=== PATIENT | female | born 1965 | race African-American/Black ===

== ENCOUNTER 2016-07-11 19:54 | Emergency (ER) ==
[2016-07-11 20:03] VITALS: BP 123/62
[2016-07-11] MEDS ORDERED: DOXYCYCLINE PO ONE (20:26)
--- NOTE | 2016-07-11 20:30 | PROVIDER DOCUMENTATION ---
HPI-Female /OB/Breast - General Chief Complaint: Female Stated Complaint: ANXIETY Time Seen by Provider: 07/11/16 20:20 Source: reports: patient Allergies/Adverse Reactions: Patient Allergies Allergy/AdvReac Type Severity Reaction Status Date / Time penicillin G Allergy Unknown Verified 07/11/16 20:13 Sulfa (Sulfonamide Allergy Unknown Verified 07/11/16 20:13 Antibiotics) sulfamethoxazole Allergy SWELLING Verified 07/11/16 20:13 [From Bactrim] trimethoprim [From Bactrim] Allergy SWELLING Verified 07/11/16 20:13 Home Medications: Hydrocodone/Acetaminophen [Lortab 7.5-325 mg Tablet] 7.5 mg PO BID 08/15/14 Aspirin [Aspirin EC] 81 mg PO DAILY 06/11/15 - History of Present Illness-Female /OB Nature of Presenting Problem: 51 y/o f presents to the ed with exposure to chlamydia. pt reports her partner informed her today after having sexual relations that he has chlamydia, so she wanted to get check. pt denies any burning upon urination/itching. Quality of Pain: reports: none Severity in ED: reports: mild Onset/Duration: reports: this evening Timing: reports: still present Vaginal Bleeding Amount: None Urinary Symptoms: reports: no symptoms Contraception: reports: none Similar Symptoms Previously?: No Recently seen or treated by another doctor?: No Review of Systems - Adult - REVIEW OF SYSTEMS - ADULT Constitutional: denies: chills, fever Respiratory: denies: shortness of breath, wheezing Genitourinary: denies: dysuria, discharge Past History - Adult - PAST MEDICAL HISTORY-ADULT Review of Records: reports: Old Records Reviewed, Nursing Assessment Review, Medications Reviewed Major Childhood Illnesses: reports: denies history Cardiovascular: reports: denies history Respiratory: reports: denies history Gastrointestinal: reports: GERD Obstetrical/Gynecological: reports: denies history Genitourinary: reports: denies history Musculoskeletal: reports: fibromyalgia Neurological: reports: other (Chiare malformation) Psychiatric: reports: anxiety, psychiatric problems Endocrine/Immune: reports: thyroid disorder Other Conditions: reports: denies history Additional History: Chiari 1 malformation - IMMUNIZATION STATUS Childhood Immunizations: See Nurse Assessment Flu Vaccine: See Nurse Assessment - FAMILY HISTORY Family History: reviewed, not pertinent - SOCIAL HISTORY Smoking: non-smoker Physical Exam-General - PHYSICAL EXAM-ADULT Initial Vital Signs Reviewed: Yes - CONSTITUTIONAL General Appearance: alert, no apparent distress - EYES Eyes: PERRL/EOMI, pink conjunctivae, fundi clear, no AV nicking - HEAD, EARS, NOSE, MOUTH & THROAT HENMT: normocephalic/atraumatic, moist mucous membranes, normal ENT inspection - RESPIRATORY Respiratory: chest non-tender, lungs clear, normal breath sounds - CARDIOVASCULAR Cardiovascular: normal peripheral pulses, regular rate, rhythm - GASTROINTESTINAL (ABDOMEN) Abdominal Exam: normal bowel sounds, non tender, soft - LYMPHATIC Lymphatic: no adenopathy - SKIN Integumentary: normal color, normal turgor, warm/dry - PSYCHIATRIC Psych/Mental Status: normal mood/affect, normal thought content, normal thought process, oriented x 3 Progress - PLAN OF CARE/RESULTS Progress/Plan/Lab Results: plan of care: medication Orders Category Date Time Status CHLAMYDIA AND GC BY PCR URINE [NUREMBERG] Stat Lab 07/11/16 20:28 Uncollected Doxycycline Med 07/11/16 20:26 Discontinued 100 mg PO NOW ONE Vital Signs - 24 hr 07/11/16 20:03 Temperature 97.9 F Pulse Rate 95 H Respiratory 18 Rate Blood Pressure 123/62 O2 Sat by Pulse 100 Oximetry Departure - Departure Time of Disposition Order: 20:28 DIAGNOSIS: Chlamydia contact Disposition: HOME 01 Certified Medical Emergency: Emergent Condition: Stable Additional Instructions: ED Follow Up Instructions: You have been treated by a care provider in the Emergency Department. These instructions are being provided to you so you can have an understanding of how to care for yourself upon discharge. Upon discharge from the Emergency Department, you are responsible for making arrangements for follow-up care by a physician of your choice. Take all prescribed medications as directed. Return to the Emergency Department immediately for any new or worsening symptoms. You may call the Physician Referral phone number at [phone] to obtain a list of Physicians who are taking new patients. Attestation - Scribe Verification/Attestation Scribe:: Zuri Ojeda Acting as Scribe for:: Mp Philippe Scribe documention review:: This chart was documented by a scribe and accurately reflects the service the provider performed and the decisions made by the provider.
== END 2016-07-11 20:35 | disposition home or self-care (01) ==
LOC: ED 19:54
DX: Z20.2 Contact with and (suspected) exposure to infections with a predominantly sexual mode of transmission (principal); M79.7 Fibromyalgia; G93.5 Compression of brain; E07.9 Disorder of thyroid, unspecified; Z79.899 Other long term (current) drug therapy; Z79.82 Long term (current) use of aspirin
CPT/HCPCS: 87491; 87591; 99283